=== PATIENT | female | born 1980 | race Caucasian/White ===

== ENCOUNTER 2019-05-01 02:36 | Emergency (ER) | payer BC ==
[~2019-05-01] VITALS: Ht 162.6 cm; Wt 83.9 kg
[2019-05-01] MEDS ORDERED: INTESTINEX680 M1 PO (03:39)
[2019-05-01] MEDS ORDERED: AMOX-CLAV 875-1 EACH PO (03:39)
== END 2019-05-01 03:57 | disposition home or self-care (01) ==
LOC: ER 02:36
DX: S91.052A Open bite, left ankle, initial encounter (principal); M25.572 Pain in left ankle and joints of left foot; W54.0XXA Bitten by dog, initial encounter; Y93.89 Activity, other specified; Y92.89 Other specified places as the place of occurrence of the external cause; Y99.8 Other external cause status